=== PATIENT | female | born 1955 | race Caucasian/White ===

== ENCOUNTER 2016-05-21 10:22 | Emergency (ER) | payer BC ==
--- NOTE | 2016-05-21 11:50 | ERNOTE ---
Medical Problem HPI - General Chief Complaint: General Assessment Time Seen by Provider: 05/21/16 11:25 Source: patient Exam Limitations: no limitations - Immun/Allergies/Home Medications Immunizations: IMMUNIZATION HX Immunizations Up to Date Yes History of Influenza Vaccine Yes Hx Pneumococcal Vaccination No Allergies/Adverse Reactions: Allergies atorvastatin calcium [From Lipitor] Allergy (Verified 05/21/16 10:33) nausea, vomitting, diarrhea, gas ciprofloxacin [From Cipro] Allergy (Verified 05/21/16 10:33) nausea, vomitting, diarrhea ciprofloxacin HCl [From Cipro] Allergy (Verified 05/21/16 10:33) nausea, vomitting, diarrhea etodolac Allergy (Verified 05/21/16 10:33) nausea, vomitting, diarrhea, drowsiness meloxicam [From Mobic] Allergy (Verified 05/21/16 10:33) nausea, vomiting, diarrhea metformin Allergy (Verified 05/21/16 10:33) Vomiting monosodium glutamate Allergy (Verified 05/21/16 10:33) respitory and cardiac problems nitrofurantoin [From Macrobid] Allergy (Verified 05/21/16 10:33) nausea, vomitting, diarrhea, chills, body aches nitrofurantoin macrocrystalline [From Macrobid] Allergy (Verified 05/21/16 10:33 ) nausea, vomitting, diarrhea, chills, body aches rosuvastatin calcium [From Crestor] Allergy (Verified 05/21/16 10:33) nausea, vomitting, diarrhea simvastatin [From Zocor] Allergy (Verified 05/21/16 10:33) nausea, vomiting, diarrhea venlafaxine HCl [From Effexor] Allergy (Verified 05/21/16 10:33) dry mouth, shaking Home Medications: HOME MEDICATIONS Diltiazem HCl [Cardizem Cd] 480 mg PO DAILY 02/27/14 [Last Taken 11/03/14 05:00] FLUoxetine HCL [Prozac] 20 mg PO QAM 02/27/14 [Last Taken Unknown] Linagliptin [Tradjenta] 5 mg PO DAILY 02/27/14 [Last Taken Unknown] Pravastatin Sodium [Pravachol] 40 mg PO DAILY 02/27/14 [Last Taken Unknown] Triamterene/Hydrochlorothiazid [Maxzide 37.5MG/25 MG] 1 tab PO DAILY 02/27/14 [ Last Taken 11/03/14 05:00] Valsartan [Diovan] 160 mg PO DAILY 02/27/14 [Last Taken 11/03/14 05:00] Fenofibrate Nanocrystallized [Tricor] 145 mg PO DAILY 10/27/14 [Last Taken Unknown] Ferrous Sulfate [Slow Release Iron] 47.5 mg PO DAILY 10/27/14 [Last Taken Unknown] Fluoxetine HCl [Prozac] 40 mg PO HS 10/27/14 [Last Taken Unknown] Melatonin/Pyridoxine [Melatonin 3 mg Tablet] 1 each PO HS 10/27/14 [Last Taken Unknown] Multivitamins [Multivitamin Carola] 1 cap PO DAILY 10/27/14 [Last Taken Unknown] Aspirin 325 mg PO DAILY #30 tab 11/08/14 [Last Taken Unknown] Enoxaparin Sodium [Lovenox] 40 mg SC Q24H #5 disp.syrin 11/08/14 [Last Taken Unknown] oxyCODONE HCL/ACETAMINOPHEN [Percocet 5 MG/325 MG] 1 tab PO Q4H PRN #60 tablet 11/08/14 [Last Taken Unknown] Cephalexin Monohydrate [Keflex] 500 mg PO QID #40 cap 09/30/15 [Last Taken Unknown] - History of Present History Narrative: Patient has had URI symptoms for a couple of days, mainly sinus congestion and drainage, no fever, dry cough. Since this morning she has has pain in her right lower chest with cough and deep breath only, no pain when holding still. Date (Duration): 05/19/16 Review of Systems - Review of Systems Constitutional: Present: recent illness. Absent: fever, chills EYE: Absent: double vision, vision changes ENT: Present: nose congestion, nasal drainage, sore throat - slight. Absent: ear pain Respiratory: Present: See HPI, cough - slight, dry. Absent: shortness of breath Cardiology: Present: See HPI, chest pain Gastrointestinal/Abdominal: Absent: nausea, vomiting, diarrhea, abdominal pain Genitourinary: Present: no symptoms reported Neurological: Absent: headache - Patient's Past Medical History Patient History - Medical: Anxiety, Diabetes Type 2, Depression, Renal Disease Patient History - Cardiac/Respiratory: Hypertension, Hyperlipidemia Patient History - Cancer: No Hx of Cancer Patient History - Surgical Procedures: Colonoscopy, D & C LMP (females 10-50): Menopausal - Family History Mother Family History - Medical: Family History - Cardiac/Respiratory: Coronary Heart Disease, CHF, Hypertension Father Family History - Medical: Family History - Cardiac/Respiratory: Coronary Heart Disease, CHF, CVA/Stroke, Hypertension Sister Family History - Medical: Renal Disease Family History - Cardiac/Respiratory: Hypertension, Hyperlipidemia Grandfather-Paternal Family History - Medical: , Diabetes Type 2 - Social History Living Situations: home Smoking Status: Never smoker Alcohol Use: rarely Drug Use: none - Immunizations Immunizations Up to Date: Yes History of Influenza Vaccine: Yes Physical Exam - Physical Exam General Appearance: Present: wd/wn, alert, no apparent distress Eye Exam: Normal inspection: bilateral, PERRL: bilateral Ears, Nose, Throat: Present: nasal congestion, normal pharynx Neck: Present: normal inspection, nontender. Absent: lymphadenopathy (R), lymphadenopathy (L) Respiratory: Present: no respiratory distress, normal breath sounds, lungs clear , chest tenderness - right lateral and anterior lower ribs only, normal inspection Cardiovascular/Chest: Present: regular rate, rhythm, no murmur Neurological Exam: Present: alert, oriented, normal mood/affect, no motor/ sensory deficits Skin Exam: Present: normal color, warm/dry ED Progress - Vital Signs Patient's Vital Signs:: I have reviewed the patient's vital signs. Vital Signs: Vital Signs 05/21/16 10:27 Temperature 35.7 C L Pulse Rate 80 Respiratory 16 Rate Blood Pressure 185/90 O2 Sat by Pulse 98 Oximetry - Progress/Reassessment Chief Complaint: General Assessment Progress Note-Subjective: 05/21/16 11:42 discussed symptoms and most likely viral URI and chest wall pain, though pneumonia or CAD is not ruled out Offered further testing, patient declined Departure - Departure Clinical Impression: Upper respiratory infection, viral Disposition: Home self-care Condition: Good Instructions: Upper Respiratory Infection, Adult, [id number] Additional Instructions: user over the counter medications for symptomatic relieve tylenol as needed for pain if you are not better in 2-3 days or your symptoms get worse follow up with your doctor Referrals: Crystal Crowe, [employer] [Primary Care Provider] -
[2016-05-21 14:16] VITALS: BP 193/77
== END 2016-05-21 11:49 | disposition home or self-care (01) ==
LOC: ER 10:22
DX: J06.9 Acute upper respiratory infection, unspecified (principal)